=== PATIENT | male | born 1995 | race Caucasian/White ===

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

== ENCOUNTER 2017-02-18 09:20 | Emergency (ER) | payer OTHER ==
[2017-02-18 09:28] VITALS: BP 132/87; PULSE 92; RESP 17; TEMP 98.6; O2SAT 97
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
== END 2017-02-18 10:11 | disposition home or self-care (01) ==
DX: S62.356A Nondisplaced fracture of shaft of fifth metacarpal bone, right hand, initial encounter for closed fracture (principal); F17.200 Nicotine dependence, unspecified, uncomplicated; W22.8XXA Striking against or struck by other objects, initial encounter

== ENCOUNTER 2017-02-20 14:04 | Emergency (ER) | payer OTHER ==
[2017-02-20 14:09] VITALS: TEMP 97.9
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
[2017-02-20 15:04] VITALS: BP 128/71; PULSE 92; RESP 14; O2SAT 96
== END 2017-02-20 15:02 | disposition home or self-care (01) ==
DX: S06.0X0A Concussion without loss of consciousness, initial encounter (principal); W19.XXXA Unspecified fall, initial encounter

== ENCOUNTER 2017-03-22 11:11 | Emergency (ER) | payer OTHER ==
[2017-03-22] MEDS ORDERED: IPRATROPIUM/ALBUTEROL 3 ML DEYVIAL IH ONE (12:47)
[2017-03-22] MEDS ORDERED: DEXAMETHASONE 4 MG TAB PO ONE (12:54)
--- NOTE | 2017-03-22 13:37 | EDPHY ---
H & P Stated Complaint: wheezing/sob/cough HPI/ROS: CHIEF COMPLAINT: Wheezing, cough, chest pain or shortness of breath HISTORY OF PRESENT ILLNESS: The patient complains of cough, congestion, chest pain, wheezing shortness of breath. Symptoms started 2 days ago. They have been constant duration. Worse with deep inspiration. No worse with exertion. Subjective fever. No trauma or injury. No recent travel or surgery. No history of reactive airway disease. Pain is reproducible with palpation of the chest. No other associated complaints or modifying factors. PERC negative REVIEW OF SYSTEMS: Ten systems reviewed and are negative unless otherwise noted in the HPI PAST MEDICAL HISTORY: Reactive airway disease PAST SURGICAL HISTORY: None SOCIAL HISTORY: Occasional smoker. No alcohol. FAMILY HISTORY: Noncontributory EXAMINATION General Appearance: Alert, no distress Head: normocephalic, atraumatic Eyes: Pupils equal and round, no conjunctival pallor or injection ENT, Mouth: Mucous membranes moist Neck: Normal inspection, supple, non-tender Respiratory: Audible expiratory wheezing. Coarse rhonchi she is auscultation. No retractions. No distress. Painful palpation of the anterior chest bilaterally. Cardiovascular: Regular rate and rhythm. No murmur pulses intact distally Gastrointestinal: Abdomen is soft and nontender Back: non-tender, no bony abnormalities Neurological: A&O, nonfocal, normal gait Skin: Warm and dry, no rash Extremities: Nontender, no pedal edema Psychiatric: Mood and affect normal DIFFERENTIAL DIAGNOSES: Including but not limited to asthma exacerbation, pneumonia, costochondritis, bronchitis MDM: 12:50 p.m. Cough, chest pain and wheezing. Chest pain is completely reproducible with palpation and inspiration. No signs are stable with mild tachypnea. He has audible expiratory wheezing without auscultation, thus I have ordered DuoNeb and chest x-ray. 1:45 p.m. Chest x-ray is unremarkable for any acute findings. I re-evaluated the patient. He is doing much better with much improvement in the wheezing. Vital signs remained stable. I do not feel that he has any evidence of pneumonia. He is PERC negative and clinically has the appearance of asthma exacerbation. This is asthma without status asthmaticus. He is stable for discharge home. Treat with albuterol and short course of steroids. Follow up with established primary care physician. ED precautions discussed. 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 - Social History Smoking Status: Current some day smoker Constitutional: Initial Vital Signs Temperature (C) 98.2 F 03/22/17 11:18 Heart Rate 72 03/22/17 11:18 Respiratory Rate 25 H 03/22/17 11:18 Blood Pressure 118/80 03/22/17 11:18 O2 Sat (%) 100 03/22/17 11:18 O2 Delivery Mode Room Air Allergies/Adverse Reactions: No Known Allergies Allergy (Verified 11/17/16 15:14) Home Medications: Medication Instructions Recorded Albuterol [Proventil Inhaler HFA 1 - 2 puffs IH Q4H PRN #1 mdi 03/22/17 (*)] predniSONE [Deltasone] 60 mg PO DAILY #12 tablet 03/22/17 Departure - Departure Disposition: Home, Routine, Self-Care Clinical Impression: Asthma without status asthmaticus with acute exacerbation Qualifiers: Asthma severity: moderate persistent Qualified Code(s): J45.41 - Moderate persistent asthma with (acute) exacerbation Acute bronchitis Qualifiers: Bronchitis organism: unspecified organism Qualified Code(s): J20.9 - Acute bronchitis, unspecified Condition: Good Instructions: Asthma (ED), Acute Bronchitis (ED) Additional Instructions: 1. Recommend air conditioning or mask when outside for the next 2 days due to poor air quality 2. Follow up with primary care physician as discussed 3. Medications as discussed 4. ED precautions discussed Referrals: NONE *PRIMARY CARE P,. [Primary Care Provider] - As per Instructions Finesse Carrillo MD [[facility] [place] - As per Instructions Prescriptions: Albuterol [Proventil Inhaler HFA (*)] 1 - 2 puffs IH Q4H PRN #1 mdi PRN Reason: Short Of Breath/Dyspnea predniSONE [Deltasone] 60 mg PO DAILY #12 tablet
[2017-03-22 14:04] VITALS: BP 139/91; PULSE 85; RESP 16; TEMP 98.4; O2SAT 98
== END 2017-03-22 14:04 | disposition home or self-care (01) ==
DX: J45.41 Moderate persistent asthma with (acute) exacerbation (principal); J20.9 Acute bronchitis, unspecified; F17.200 Nicotine dependence, unspecified, uncomplicated

== ENCOUNTER 2017-05-05 16:19 | Emergency (ER) | payer OTHER ==
[2017-05-05 16:47] VITALS: RESP 16; O2SAT 95
--- NOTE | 2017-05-05 17:37 | EDPHY ---
H & P Stated Complaint: lower back ache, nasal congestion, fatigue Time Seen by Provider: 05/05/17 16:59 HPI/ROS: Chief complaint: Right leg pain and swelling History of present illness: This is a 21-year-old male who presents to the emergency department for right leg pain and swelling. Patient reports he has had symptoms for number of months, ever since returning home from [place]. He states he has been seen by multiple specialists at the [facility], undergone multiple blood studies and imaging studies but no definitive diagnosis has been given as of yet. He states symptoms are worsening. Denies associated signs or symptoms with the leg swelling including no abnormal coolness, no paresthesias in the leg. In addition, patient is complaining of cold symptoms, he has had cold symptoms for the last 2 days. He primarily reports runny nose, nasal congestion and sore throat. No report of fever, no cough, no chest congestion, no trouble breathing and no rash. Review of systems: A 10 point review of systems was obtained and other than described above was negative - Personal History Current Tetanus/Diphtheria Vaccine: Unsure Current Tetanus Diphtheria and Acellular Pertussis (TDAP): Unsure - Medical/Surgical History Hx Asthma: No Hx Chronic Respiratory Disease: No Hx Diabetes: No Hx Cardiac Disease: No Hx Renal Disease: No Hx Cirrhosis: No Hx Alcoholism: No Hx HIV/AIDS: No Hx Splenectomy or Spleen Trauma: No Other PMH: cleft palate as infanct/asthma as child - Social History Smoking Status: Current some day smoker - Physical Exam Exam: General Appearance: Alert, nontoxic. Eyes: Pupils equal and round no pallor or injection. ENT, Mouth: Tympanic membranes, external auditory canals, external easr and surrounding soft tissue including over the mastoids are unremarkable. Nasopharynx is not injected. There is no rhinorrhea. Oropharynx is injected. There is no edema. There is no exudate. There is no asymmetry. The uvula is midline. No elevation of the tongue. There is no hoarseness, no drooling, no trismus, no stridor. Respiratory: There are no retractions, lungs are clear to auscultation. Cardiovascular: Regular rate and rhythm. DP and PT pulses 2+ bilaterally. Capillary refill brisk in the right foot. Gastrointestinal: Abdomen is soft and non tender, no masses, bowel sounds normal. Neurological: Alert and oriented x4. No meningismus. Skin: Warm and dry, no rashes. Musculoskeletal: Neck is supple non tender. There is edema to the right foot, ankle and distal aspect of the right lower leg. Psychiatric: Patient is oriented X 3, there is no agitation. Constitutional: Initial Vital Signs Temperature (C) 37.2 C 05/05/17 16:44 Heart Rate 92 05/05/17 16:44 Respiratory Rate 16 05/05/17 16:44 Blood Pressure 133/82 H 05/05/17 16:44 O2 Sat (%) 95 05/05/17 16:44 O2 Delivery Mode Room Air Allergies/Adverse Reactions: No Known Allergies Allergy (Verified 11/17/16 15:14) Medical Decision Making - Diagnostics Imaging Results: Imaging Impressions Extremity Venous Study 05/05/17 17:14 Impression: No evidence of deep vein thrombosis. Findings discussed with NEELIMA Edge 05/05/2017 at 1805. Imaging: Discussed imaging studies w/ scallop binder Radiologist ED Course/Re-evaluation: Patient seen under the supervision of my secondary supervising physician Dr. Reji Feliz. Patient presents to the emergency department primarily for right leg pain and swelling. His leg is neurovascularly intact. Ultrasound is negative for DVT. This does appear to be a chronic ongoing issue. I do not believe further emergency department or inpatient workup is warranted. In addition patient is complaining of URI type symptoms. Strep negative. Antibiotics not indicated. Symptomatic care at home is discussed. Patient is to follow up with a primary care doctor and Infectious Disease doctor for continued care. Referral information is given. Return precautions are given. Patient voiced understanding and agreement with plan. - Data Points Laboratory Results: Laboratory Results 05/05/17 18:12 05/05/17 18:12 05/05/17 05/05/17 05/05/17 Unknown 18:12 18:12 WBC 11.61 10^3/uL H 10^3/uL (3.80-9.50) RBC 5.51 10^6/uL 10^6/uL (4.40-6.38) Hgb 17.5 g/dL g/dL (13.7-17.5) Hct 51.1 % H % (40.0-51.0) MCV 92.7 fL fL (81.5-99.8) MCH 31.8 pg pg (27.9-34.1) MCHC 34.2 g/dL g/dL (32.4-36.7) RDW 13.6 % % (11.5-15.2) Plt Count 293 10^3/uL 10^3/uL (150-400) MPV 8.1 fL L fL (8.7-11.7) Neut % (Auto) 67.4 % % (39.3-74.2) Lymph % (Auto) 20.8 % % (15.0-45.0) [place] % (Auto) 8.2 % % (4.5-13.0) Eos % (Auto) 2.9 % % (0.6-7.6) Baso % (Auto) 0.4 % % (0.3-1.7) Nucleat RBC Rel Count 0.0 % % (0.0-0.2) Absolute Neuts (auto) 7.81 10^3/uL H 10^3/uL (1.70-6.50) Absolute Lymphs (auto) 2.42 10^3/uL 10^3/uL (1.00-3.00) Absolute Monos (auto) 0.95 10^3/uL H 10^3/uL (0.30-0.80) Absolute Eos (auto) 0.34 10^3/uL 10^3/uL (0.03-0.40) Absolute Basos (auto) 0.05 10^3/uL 10^3/uL (0.02-0.10) Absolute Nucleated RBC 0.00 10^3/uL 10^3/uL (0-0.01) Immature Gran % 0.3 % % (0.0-1.1) Immature Gran # 0.04 10^3/uL 10^3/uL (0.00-0.10) Sodium 139 mEq/L mEq/L (134-144) Potassium 4.2 mEq/L mEq/L (3.5-5.2) Chloride 101 mEq/L mEq/L (97-110) Carbon Dioxide 27 mEq/l mEq/l (22-31) Anion Gap 11 mEq/L mEq/L (8-16) BUN 7 mg/dL mg/dL (7-23) Creatinine 1.1 mg/dL mg/dL (0.7-1.3) Estimated GFR > 60 Glucose 90 mg/dL mg/dL (70-100) Calcium 9.4 mg/dL mg/dL (8.5-10.4) Group A Strep Screen Group A Strep DNA Pending 05/05/17 17:13 WBC RBC Hgb Hct MCV MCH MCHC RDW Plt Count MPV Neut % (Auto) Lymph % (Auto) [place] % (Auto) Eos % (Auto) Baso % (Auto) Nucleat RBC Rel Count Absolute Neuts (auto) Absolute Lymphs (auto) Absolute Monos (auto) Absolute Eos (auto) Absolute Basos (auto) Absolute Nucleated RBC Immature Gran % Immature Gran # Sodium Potassium Chloride Carbon Dioxide Anion Gap BUN Creatinine Estimated GFR Glucose Calcium Group A Strep Screen NEGATIVE (NEGATIVE) Group A Strep DNA Medications Given: Discontinued Medications Ketorolac Tromethamine (Toradol) 60 mg IM EDNOW ONE Stop: 05/05/17 18:46 Last Admin: 05/05/17 18:48 Dose: 60 mg Departure - Departure Disposition: Home, Routine, Self-Care Clinical Impression: Leg swelling URI (upper respiratory infection) Qualifiers: URI type: unspecified viral URI Qualified Code(s): J06.9 - Acute upper respiratory infection, unspecified; B97.89 - Other viral agents as the cause of diseases classified elsewhere; B97.89 - Other viral agents as the cause of diseases classified elsewhere Condition: Good Instructions: Upper Respiratory Infection (ED), Leg Edema (ED) Additional Instructions: You can follow up with a primary care doctor and Infectious Disease doctor for continued evaluation and care Use ibuprofen 600 mg 3 times a day as needed for pain In addition I recommend he use an [id number] nasal steroid such as Nasacort or Flonase If symptoms worsen or new symptoms develop return to the emergency room for recheck Referrals: UNKNOWN,DOCTOR [Other] - As per Instructions Rosalinda Ko MD [[facility] [place] Primary Care Provider] - As per Instructions Cheko Freitas MD [Medical Doctor] - As per Instructions [facility] [Clinic] - As per Instructions
[2017-05-05 18:20] LABS: % IMMATURE GRANULYOCYTES 0.3 % (0.0-1.1); ABSOLUTE IMMATURE GRANULOCYTES 0.04 10^3/uL (0.00-0.10); ADD DIFF? NO; ADD MORPH? NO; ADD SCAN? NO; ATYPICAL LYMPHOCYTE FLAG 30 (0-99); FRAGMENT RBC FLAG 0 (0-99); HEMATOCRIT 51.1 % (40.0-51.0); HEMOGLOBIN 17.5 g/dL (13.7-17.5); LEFT SHIFT FLG 0 (0-99); LIPEMIA HEMOLYSIS FLAG 90 (0-99); MEAN CELL HEMOGLOBIN 31.8 pg (27.9-34.1); MEAN CELL HEMOGLOBIN CONCENTR. 34.2 g/dL (32.4-36.7); MEAN CELL VOLUME 92.7 fL (81.5-99.8); MEAN PLATELET VOLUME 8.1 fL (8.7-11.7); PLATELET CLUMPS FLAG 0 (0-99); PLATELET COUNT 293 10^3/uL (150-400); RED BLOOD CELL COUNT 5.51 10^6/uL (4.40-6.38); RED CELL DISTRIBUTION WIDTH 13.6 % (11.5-15.2)
[2017-05-05 18:32] LABS: ANION GAP 11 mEq/L (8-16); CALCIUM 9.4 mg/dL (8.5-10.4); CARBON DIOXIDE 27 mEq/l (22-31); CHLORIDE 101 mEq/L (97-110); CREATININE 1.1 mg/dL (0.7-1.3); GLOMERULAR FILTRATION RATE > 60; GLUCOSE 90 mg/dL (70-100); POTASSIUM 4.2 mEq/L (3.5-5.2); SODIUM 139 mEq/L (134-144)
[2017-05-05] MEDS ORDERED: KETOROLAC 30 MG/1 ML SDV IVP ONE (18:39)
[2017-05-05] MEDS ORDERED: KETOROLAC 30 MG/1 ML SDV IM ONE (18:45)
[2017-05-05 19:15] VITALS: BP 127/77; PULSE 84; TEMP 98.8
== END 2017-05-05 19:13 | disposition home or self-care (01) ==
DX: M79.89 Other specified soft tissue disorders (principal); J06.9 Acute upper respiratory infection, unspecified; B97.89 Other viral agents as the cause of diseases classified elsewhere; J45.909 Unspecified asthma, uncomplicated; F17.200 Nicotine dependence, unspecified, uncomplicated
CPT/HCPCS: J1885

== ENCOUNTER → 2017-05-18 | Outpatient (CLI) | payer OTHER ==
[~2017-05-18] MED LIST: IOPAMIDOL (ISOVUE-300) 100 ML BTL ONE
== END ==
LOC: CIMAGING 13:52
PROVIDERS: ATTEND Internal Medicine Infectious Disease
DX: R93.41 Abnormal radiologic findings on diagnostic imaging of renal pelvis, ureter, or bladder (principal)
CPT/HCPCS: 74177-PO; Q9967

== ENCOUNTER → 2017-06-10 | Outpatient (CLI) | payer OTHER ==
[~2017-06-10] MED LIST changes: +GADOBUTROL 10 ML VIAL IVP ONE; -IOPAMIDOL (ISOVUE-300) 100 ML BTL ONE
== END ==
LOC: FIMAGING 06-08 09:06
PROVIDERS: ATTEND Internal Medicine Infectious Disease
DX: I89.0 Lymphedema, not elsewhere classified (principal)
CPT/HCPCS: A9585